=== PATIENT | female | born 1965 | race Two or more races ===

== ENCOUNTER 2019-01-31 14:28 | Emergency (ER) | payer OTHER ==
[~2019-01-31] VITALS: Ht 149.9 cm; Wt 72.6 kg
[2019-01-31 15:29] VITALS: BP 136/73
[2019-01-31] MEDS ORDERED: Acetaminophen 500mg (ES) tab ORAL ONE (15:30)
[2019-01-31] MEDS ORDERED: Methocarbamol 750mg tab ORAL ONE (15:30)
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
[2019-01-31] MEDS ORDERED: LIDODERM700 M1 TOPIC (16:28)
[2019-01-31] MEDS ORDERED: IBUPROFEN600 MG ORAL (16:28)
[2019-01-31] MEDS ORDERED: ROBAXIN-750750 MG PO (16:28)
[2019-01-31 16:41] VITALS: BP 136/73
--- NOTE | 2019-01-31 16:41 | NUR ---
ED Nurse Note: Pt cleared by health care Provider for discharge. DC instructions/prescription was given and explained to pt and verbalized understanding of teachings. All medical deviecs such as ID band removed. Pt is AAO x4, ambulatory and left with all personal belongings.
== END 2019-01-31 16:41 | disposition home or self-care (01) ==
LOC: EMR 15:02
DX: S39.012A Strain of muscle, fascia and tendon of lower back, initial encounter (principal); S16.1XXA Strain of muscle, fascia and tendon at neck level, initial encounter; R51 Headache; V43.62XA Car passenger injured in collision with other type car in traffic accident, initial encounter; Y92.410 Unspecified street and highway as the place of occurrence of the external cause
CPT/HCPCS: 72020; 99283